=== PATIENT | male | born 1955 | race Caucasian/White ===

== ENCOUNTER 2021-03-02 08:44 | Outpatient (REF) | payer MEDICARE, OTHER, SELFPAY ==
--- NOTE | ~2021-03-02 | XR_ITS ---
EXAMINATION: XR KNEE STANDING, BILATERAL XR KNEE, RIGHT XR KNEE, LEFT CLINICAL INFORMATION: Pain. COMPARISON: Bilateral knee radiographs dated 03/10/2015. TECHNIQUE: AP standing as well as lateral and sunrise views of the right and left knee. FINDINGS: Right Knee: Mild medial compartment joint space narrowing. Tiny patellofemoral compartment marginal osteophytes. No osseous erosion. No fracture or dislocation. No significant joint effusion. Atherosclerotic calcifications. Left Knee: Mild medial compartment joint space narrowing. Tiny patellofemoral marginal osteophytes. No osseous erosion. No fracture or dislocation. No significant joint effusion. Atherosclerotic calcifications. XR/XR knee RT 2V IMPRESSION: RIGHT KNEE: Mild medial and patellofemoral compartment osteoarthritis, unchanged. 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
--- NOTE | ~2021-03-02 | XR_ITS ---
EXAMINATION: XR KNEE STANDING, BILATERAL XR KNEE, RIGHT XR KNEE, LEFT CLINICAL INFORMATION: Pain. COMPARISON: Bilateral knee radiographs dated 03/10/2015. TECHNIQUE: AP standing as well as lateral and sunrise views of the right and left knee. FINDINGS: Right Knee: Mild medial compartment joint space narrowing. Tiny patellofemoral compartment marginal osteophytes. No osseous erosion. No fracture or dislocation. No significant joint effusion. Atherosclerotic calcifications. Left Knee: Mild medial compartment joint space narrowing. Tiny patellofemoral marginal osteophytes. No osseous erosion. No fracture or dislocation. No significant joint effusion. Atherosclerotic calcifications. XR/XR knee standing BI IMPRESSION: RIGHT KNEE: Mild medial and patellofemoral compartment osteoarthritis, unchanged. 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
--- NOTE | ~2021-03-02 | XR_ITS ---
EXAMINATION: XR KNEE STANDING, BILATERAL XR KNEE, RIGHT XR KNEE, LEFT CLINICAL INFORMATION: Pain. COMPARISON: Bilateral knee radiographs dated 03/10/2015. TECHNIQUE: AP standing as well as lateral and sunrise views of the right and left knee. FINDINGS: Right Knee: Mild medial compartment joint space narrowing. Tiny patellofemoral compartment marginal osteophytes. No osseous erosion. No fracture or dislocation. No significant joint effusion. Atherosclerotic calcifications. Left Knee: Mild medial compartment joint space narrowing. Tiny patellofemoral marginal osteophytes. No osseous erosion. No fracture or dislocation. No significant joint effusion. Atherosclerotic calcifications. XR/XR knee LT 2V IMPRESSION: RIGHT KNEE: Mild medial and patellofemoral compartment osteoarthritis, unchanged. 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
== END 2021-03-02 08:45 | disposition home or self-care (01) ==
LOC: HO.HOSX 08:44
PROVIDERS: Visit Provider Physician Assistant
DX: M17.0 Bilateral primary osteoarthritis of knee (principal)
CPT/HCPCS: 20610; 73560; 73565; 99202; J1040

== ENCOUNTER 2021-05-15 12:23 | Outpatient (REF) | payer MEDICARE, MEDICAID, SELFPAY ==
--- NOTE | ~2021-05-15 | CT_ITS ---
EXAMINATION: CT ABDOMEN AND PELVIS WITH CONTRAST CLINICAL INFORMATION: Right lower quadrant pain COMPARISON: Previous abdominal ultrasound June 2009 TECHNIQUE: Multidetector volumetric images were obtained from the superior aspect of the liver through the pubic symphysis following administration 85 mL of Omnipaque 350 intravenous contrast. Delayed imaging through the kidneys was performed. Sagittal and coronal reformatted images were obtained on the technologist's workstation. Oral contrast: Yes This CT examination was performed using dose optimization techniques as appropriate, variously including the following: *Automated exposure control *Adjustment of mA and/or kV according to patient size (this includes techniques or standardized protocols for targeted exams where dose is matched to indication/reason for exam; i.e. extremities or head) *Use of iterative reconstruction technique DLP: 643 mGy-cm FINDINGS: LUNG BASES: The visualized lung bases are unremarkable. LIVER, GALLBLADDER, AND BILIARY TREE: The liver is normal in size, shape, and attenuation. There is a 1 cm low-attenuation lesion in the lateral segment of the left lobe of the liver near the falciform ligament suggestive of a cyst axial image 22 series 3. The liver is otherwise unremarkable. The gallbladder is unremarkable. There is no biliary duct dilatation. PANCREAS: Unremarkable. SPLEEN: Unremarkable. ADRENAL GLANDS: Unremarkable. KIDNEYS AND URETERS: There are bilateral renal cysts. There is a 1 cm cyst in the lower pole of the right kidney. There are 2 cysts left kidney measuring 2 cm in the upper pole and 2.5 cm in the lower. There are several left peripelvic cysts. There are 2 small 2 mm stones in the lower pole of the right kidney. There is a 5 x 7 mm central left renal stone in the left renal pelvis. There is a small 2 mm stone in the lower pole of the left kidney. There is no hydronephrosis. No ureteral dilatation or ureteral stone is seen. BLADDER: Unremarkable. GASTROINTESTINAL TRACT: The small and large bowel are unremarkable. The appendix is normal in size measuring 8 mm. mm in diameter. There is a small high attenuation density in the appendix probably representing an appendicolith. The periappendiceal fat is normal. No periappendiceal fluid is seen. There is stool throughout the colon questionable for constipation. Small and large bowel is otherwise unremarkable. The stomach is unremarkable. ABDOMINAL WALL: No significant hernia is appreciated. LYMPH NODES: Normal. VASCULAR: Unremarkable. PELVIC VISCERA: Unremarkable. OSSEOUS STRUCTURES: There is bilateral femoral head AVN. There are mild degenerative changes of the spine and scoliosis.. CT/CT abdomen pelvis w con IMPRESSION: Upper normal-size appendix. There is a probable appendicolith. The periappendiceal fat is normal and there is no periappendiceal fluid. Early appendicitis cannot be excluded and clinical correlation recommended. Stool throughout the colon. Bilateral renal and liver cysts. Bilateral renal stones. Bilateral femoral head AVN.
[2021-05-15] MEDS: iohexoL 350 MG/ML 100 ML INFUS..BTL IV (15:36)
== END 2021-05-15 12:24 | disposition home or self-care (01) ==
LOC: HO.CT 12:23
PROVIDERS: Visit Provider Student in an Organized Health Care Education/Training Program
DX: R10.31 Right lower quadrant pain (principal)
CPT/HCPCS: 74177; Q9967

== ENCOUNTER 2021-11-22 06:39 | Outpatient (REF) | payer MEDICARE, MEDICAID, SELFPAY | END 2021-11-22 06:40 | disposition home or self-care (01) | LOC: HO.HOSX 06:39 | PROVIDERS: Visit Provider Physician Assistant | DX: Z13.89 Encounter for screening for other disorder (principal) ==

== ENCOUNTER 2021-12-28 07:17 | Outpatient (REF) | payer MEDICARE, MEDICAID, SELFPAY ==
--- NOTE | ~2021-12-28 | XR_ITS ---
EXAMINATION: XR FOOT, LEFT XR ANKLE, LEFT CLINICAL INFORMATION: Pain left foot COMPARISON: None TECHNIQUE: Left foot 3 views. Left ankle 2 views. FINDINGS: LEFT FOOT: There is hallux valgus deformity, 1st MTP joint. No visible acute fracture, dislocation or subluxation seen. There are no bony erosive changes. There is a small calcaneal heel enthesophyte. There are vascular calcifications along the posterior tibial artery. LEFT ANKLE: There is no visible acute fracture, dislocation seen. The ankle mortise and subtalar joints are normal. There is a small calcaneal heel enthesophyte. No soft tissue swelling seen. XR/XR foot LT min 3V IMPRESSION: 1. Hallux valgus deformity 1st MTP joint with mild soft tissue swelling but no bony erosive changes. No visible acute fracture or dislocation. 2. Small calcaneal heel enthesophyte.
--- NOTE | ~2021-12-28 | XR_ITS ---
EXAMINATION: XR FOOT, LEFT XR ANKLE, LEFT CLINICAL INFORMATION: Pain left foot COMPARISON: None TECHNIQUE: Left foot 3 views. Left ankle 2 views. FINDINGS: LEFT FOOT: There is hallux valgus deformity, 1st MTP joint. No visible acute fracture, dislocation or subluxation seen. There are no bony erosive changes. There is a small calcaneal heel enthesophyte. There are vascular calcifications along the posterior tibial artery. LEFT ANKLE: There is no visible acute fracture, dislocation seen. The ankle mortise and subtalar joints are normal. There is a small calcaneal heel enthesophyte. No soft tissue swelling seen. XR/XR ankle LT min 3V IMPRESSION: 1. Hallux valgus deformity 1st MTP joint with mild soft tissue swelling but no bony erosive changes. No visible acute fracture or dislocation. 2. Small calcaneal heel enthesophyte.
== END 2021-12-28 07:18 | disposition home or self-care (01) ==
LOC: HO.HOSX 07:17
PROVIDERS: Visit Provider Physician Assistant
DX: M21.6X2 Other acquired deformities of left foot (principal); M17.0 Bilateral primary osteoarthritis of knee; M19.072 Primary osteoarthritis, left ankle and foot; M21.612 Bunion of left foot; M25.572 Pain in left ankle and joints of left foot; M79.672 Pain in left foot; I10 Essential (primary) hypertension; E78.00 Pure hypercholesterolemia, unspecified; Z87.891 Personal history of nicotine dependence
CPT/HCPCS: 73610; 73630; 99202

== ENCOUNTER 2022-01-11 07:09 | Outpatient (REF) | payer MEDICARE, MEDICAID, SELFPAY ==
--- NOTE | ~2022-01-11 | XR_ITS ---
EXAMINATION: XR SHOULDER, LEFT CLINICAL INFORMATION: Left shoulder pain. COMPARISON: None TECHNIQUE: Three views of the left shoulder. FINDINGS: There is no evidence of acute fracture or dislocation of the left shoulder. No evidence of calcific tendinitis. There is some mild spurring about the inferior aspect of the glenohumeral joint. There is mild narrowing of the acromioclavicular joint without spurring. There is no widening of the coracoclavicular space. XR/XR shoulder LT min 2V IMPRESSION: Mild degenerative change of the left shoulder as described.
== END 2022-01-11 07:10 | disposition home or self-care (01) ==
LOC: HO.HOSX 07:09
PROVIDERS: Visit Provider Physician Assistant
DX: M75.102 Unspecified rotator cuff tear or rupture of left shoulder, not specified as traumatic (principal)
CPT/HCPCS: 73030; 99212